=== PATIENT | female | born 1940 | race African-American/Black ===

== ENCOUNTER 2018-12-30 13:29 | Emergency (ER) | payer BC ==
[~2018-12-30] VITALS: Ht 167.6 cm; Wt 72.0 kg
[~2018-12-30 13:29] MED LIST: SOTA80TA PO; XAR15 PO
[2018-12-30] MEDS ORDERED: APIX5TAB PO (13:46)
[2018-12-30] MEDS ORDERED: DILT30TA38 PO (13:46)
[2018-12-30] MEDS ORDERED: SIMV20TA6 PO (13:46)
[2018-12-30 18:34] VITALS: BP 146/62
== END 2018-12-30 18:35 | disposition home or self-care (01) ==
LOC: ER 13:29
DX: S60.221A Contusion of right hand, initial encounter (principal); W01.0XXA Fall on same level from slipping, tripping and stumbling without subsequent striking against object, initial encounter; Y93.89 Activity, other specified; Y92.89 Other specified places as the place of occurrence of the external cause; J06.9 Acute upper respiratory infection, unspecified; I10 Essential (primary) hypertension
CPT/HCPCS: 29125; 71045; 73130; 99283

== ENCOUNTER 2019-12-07 17:26 | Inpatient (IN) | payer BC ==
[~2019-12-07] VITALS: Ht 167.6 cm; Wt 76.3 kg
[~2019-12-07 17:26] MED LIST changes: +APIX5TAB PO; +ATOR20TA65 PO; +DILT300C25 PO; -SOTA80TA PO; -XAR15 PO
[2019-12-07] MEDS ORDERED: DILTIAZEM HCL 5MG/ML 5ML VIAL IV ONE (21:30)
[2019-12-07 22:00] VITALS: BP 118/62
[2019-12-07 22:10] LABS: BASOPHILS % 0.6 % (0.0-2.0); EOSINOPHILS % 0.1 % (0.0-5.0); HEMATOCRIT. 46.9 % (36.0-48.0); HEMOGLOBIN. 14.7 g/dL (12.0-16.0); LYMPHOCYTES % 34.4 % (20.0-50.0); MEAN CORPUSCULAR HEMOGLOBIN 26.6 pg (28.0-32.0); MEAN CORPUSCULAR VOLUME 84.7 fL (81.0-99.0); MEAN PLATELET VOLUME 8.1 fl (7.4-10.4); NEUTROPHILS % 52.9 % (40.0-76.0); PLATELET 229 x1000/uL (130-400); RED BLOOD CELL COUNT 5.53 mill/uL (4.2-5.4); RED CELL DISTRIBUTION WIDTH 17.1 % (11.6-14.6)
[2019-12-07 22:14] LABS: CHLORIDE 99 mEq/L (98-107)
[2019-12-07] MEDS: METOPROLOL TARTRATE 5MG/5ML VIAL IV SCH ×2 (22:20→23:55)
[2019-12-07] MEDS ORDERED: DIGOXIN 500MCG/2ML AMP IV ONE (23:30)
[2019-12-08] MEDS ORDERED: FUROSEMIDE 20MG/2ML VIAL IVP ONE
[2019-12-08] MEDS ORDERED: AMIODARONE HCL 900 MG in DEXT 5% WATER 482 ML IV PRN ×2 (01:45→02:15)
[2019-12-08 07:41] LABS: CLARITY URINE CLEAR (CLEAR); COLOR URINE DARK YELLOW (YELLOW); KETONES URINE NEGATIVE (NEGATIVE); LEUKOCYTE ESTERASE URINE TRACE (NEGATIVE); NITRITE URINE NEGATIVE (NEGATIVE); OCCULT BLOOD URINE NEGATIVE (NEGATIVE); PROTEIN URINE 1+ (NEGATIVE); SPECIFIC GRAVITY URINE 1.009 (1.005-1.030)
[2019-12-08] MEDS ORDERED: DIPHENHYDRAMINE 25MG CAPSULE PO NR (09:32)
[2019-12-08] MEDS ORDERED: FURO-152 PO (09:48)
[2019-12-08] MEDS ORDERED: RIVA20TA PO (09:48)
[2019-12-08] MEDS ORDERED: METO-539 PO (09:48)
[2019-12-08] MEDS: METOPROLOL TARTRATE 50MG TABLET PO SCH ×2 (09:50→22:22)
[2019-12-08] MEDS ORDERED: ENOXAPARIN 40MG/0.4ML SYR SUBCUT SCH (16:15)
[2019-12-08] MEDS ORDERED: IPRATROPIUM/ALBUTEROL 0.5-3(2.5)MG/3ML NEB HHN PRN (16:15)
[2019-12-08] MEDS ORDERED: ACETAMINOPHEN 325MG TABLET PO PRN (16:15)
[2019-12-08] MEDS ORDERED: HYDROCODONE/ACETAMINOPHEN 5/325MG TABLET PO PRN (16:15)
[2019-12-08] MEDS ORDERED: LEVOFLOXACIN 500MG PREMIX 100 ML IV NR (17:30)
[2019-12-08] MEDS ORDERED: RIVAROXABAN 20 MG TABLET PO NR (18:00)
[2019-12-08 22:00] VITALS: BP 118/62
[2019-12-08] MEDS: ATORVASTATIN CALCIUM 20MG TABLET PO SCH (22:22)
[2019-12-09] VITALS (11 sets, daily range): BP systolic 86–103; BP diastolic 46–59
[2019-12-09 06:37] LABS: BASOPHILS % 0.3 % (0.0-2.0); EOSINOPHILS % 0.7 % (0.0-5.0); HEMATOCRIT. 36.8 % (36.0-48.0); LYMPHOCYTES % 30.6 % (20.0-50.0); MEAN CORPUSCULAR HEMOGLOBIN 26.9 pg (28.0-32.0); MEAN CORPUSCULAR VOLUME 82.4 fL (81.0-99.0); MONOCYTES % 12.9 % (2.0-8.0); NEUTROPHILS % 55.5 % (40.0-76.0); PLATELET 203 x1000/uL (130-400); RED BLOOD CELL COUNT 4.47 mill/uL (4.2-5.4); RED CELL DISTRIBUTION WIDTH 16.5 % (11.6-14.6)
[2019-12-09 07:52] LABS: CHLORIDE 101 mEq/L (98-107)
[2019-12-09 08:00] LABS: LDL CHOLESTEROL 87 mg/dL (5-100)
[2019-12-09 08:01] LABS: CREATINE KINASE 132 IU/L (26-192); HDL CHOLESTEROL 14 mg/dL (40-59)
[2019-12-09 08:02] LABS: T4 FREE 1.67 ng/dL (0.76-1.46)
[2019-12-09] MEDS: METOPROLOL TARTRATE 50MG TABLET PO SCH ×2 (08:55→20:42)
[2019-12-09] MEDS ORDERED: DIPHENHYDRAMINE 25MG CAPSULE PO NR (11:00)
[2019-12-09] MEDS ORDERED: POTASSIUM CHLORIDE 20MEQ/PACKET PO NR (11:00)
[2019-12-09] MEDS: LEVOFLOXACIN 250MG PREMIX 50 ML IV SCH (11:23)
[2019-12-09] MEDS ORDERED: RIVAROXABAN 10 MG TABLET PO SCH (17:00)
[2019-12-09] MEDS: RIVAROXABAN 15 MG TABLET PO SCH (17:09)
[2019-12-09] MEDS: DIGOXIN 125MCG TABLET PO SCH (17:09)
[2019-12-09] MEDS ORDERED: LEVOFLOXACIN 500MG PREMIX 100 ML IV SCH (17:30)
[2019-12-09 18:18] LABS: BG CARBOXYHEMOGLOBIN 0.8 % (0.5-1.5); BG DEOXYHEMOGLOBIN 2.8 % (0.0-5.0); BG FRACTION INSPIRED OXYGEN 21; BG HCO3 ACT 27.4 mmol/L (22.0-26.0); BG METHEMOGLOBIN 0.3 % (0.0-1.5); BG OXYGEN SATURATION 97.2 % (92.0-98.5); BG OXYHEMOGLOBIN 96.1 % (94.0-97.0); BG PCO2 36.8 mmHg (35.0-45.0); BG PH 7.489 (7.350-7.450); BG PO2 94.3 mmHg (75.0-100.0); BG SAMPLE SITE LEFT BRACHIAL; BG TOTAL HEMOGLOBIN 14.1 g/dL (12.0-18.0); BG VENT MODE ROOM AIR
[2019-12-09 19:52] LABS: INR 2.5; PROTHROMBIN TIME 24.8 sec (9.6-11.0)
[2019-12-09] MEDS: DIPHENHYDRAMINE 25MG CAPSULE PO PRN (20:33)
[2019-12-09] MEDS: ATORVASTATIN CALCIUM 20MG TABLET PO SCH (20:33)
[2019-12-10] VITALS: BP 98/46
[2019-12-10] MEDS: IPRATROPIUM/ALBUTEROL 0.5-3(2.5)MG/3ML NEB HHN SCH ×5 (01:10→20:13)
[2019-12-10 04:00] VITALS: BP 107/66
[2019-12-10] MEDS: DIPHENHYDRAMINE 25MG CAPSULE PO PRN (07:24)
[2019-12-10 07:29] LABS: BASOPHILS % 0.1 % (0.0-2.0); EOSINOPHILS % 0.4 % (0.0-5.0); HEMOGLOBIN. 12.9 g/dL (12.0-16.0); LYMPHOCYTES % 34.3 % (20.0-50.0); MEAN CORPUSCULAR HEMOGLOBIN 26.3 pg (28.0-32.0); MEAN CORPUSCULAR VOLUME 83.5 fL (81.0-99.0); MEAN PLATELET VOLUME 8.1 fl (7.4-10.4); MONOCYTES % 8.9 % (2.0-8.0); NEUTROPHILS % 56.3 % (40.0-76.0); PLATELET 199 x1000/uL (130-400); RED BLOOD CELL COUNT 4.91 mill/uL (4.2-5.4); RED CELL DISTRIBUTION WIDTH 16.6 % (11.6-14.6)
[2019-12-10] MEDS: BUDESONIDE 0.5MG/2ML NEB HHN SCH ×2 (07:49→20:12)
[2019-12-10 08:00] VITALS: BP 118/68
[2019-12-10] MEDS: METOPROLOL TARTRATE 50MG TABLET PO SCH ×2 (08:47→21:00)
[2019-12-10] MEDS: LEVOFLOXACIN 250MG PREMIX 50 ML IV SCH (10:53)
[2019-12-10 12:00] VITALS: BP 85/51
[2019-12-10] MEDS ORDERED: POTASSIUM CHLORIDE 20MEQ/PACKET PO SCH (12:00)
[2019-12-10] MEDS: DILTIAZEM HCL 30MG TABLET PO SCH ×2 (14:00→22:07)
[2019-12-10 16:00] VITALS: BP 88/46
[2019-12-10] MEDS: RIVAROXABAN 15 MG TABLET PO SCH (17:08)
[2019-12-10] MEDS: DIGOXIN 125MCG TABLET PO SCH (17:08)
[2019-12-10 20:00] VITALS: BP 107/70
[2019-12-10] MEDS: ATORVASTATIN CALCIUM 20MG TABLET PO SCH (21:58)
[2019-12-11] VITALS: BP 78/53
[2019-12-11] MEDS: IPRATROPIUM/ALBUTEROL 0.5-3(2.5)MG/3ML NEB HHN SCH ×4 (01:56→21:37)
[2019-12-11 04:00] VITALS: BP 104/62
[2019-12-11 05:45] LABS: INR 1.6
[2019-12-11] MEDS: DILTIAZEM HCL 30MG TABLET PO SCH ×3 (06:00→21:25)
[2019-12-11] MEDS: BUDESONIDE 0.5MG/2ML NEB HHN SCH (07:56)
[2019-12-11 08:05] VITALS: BP 87/52
[2019-12-11] MEDS: METOPROLOL TARTRATE 50MG TABLET PO SCH (09:00)
[2019-12-11] MEDS: LEVOFLOXACIN 250MG PREMIX 50 ML IV SCH (10:35)
[2019-12-11 12:00] VITALS: BP 88/48
[2019-12-11] MEDS: MIDODRINE HCL 2.5MG TABLET PO SCH ×2 (13:28→17:20)
[2019-12-11 16:00] VITALS: BP 109/58
[2019-12-11] MEDS ORDERED: MAGNESIUM 1 G PREMIX 100 ML IV NR (16:00)
[2019-12-11] MEDS: RIVAROXABAN 15 MG TABLET PO SCH (17:20)
[2019-12-11] MEDS: DIGOXIN 125MCG TABLET PO SCH (17:20)
[2019-12-11 20:00] VITALS: BP 101/54
[2019-12-11] MEDS: METOPROLOL TARTRATE 25MG TABLET PO SCH (21:25)
[2019-12-11] MEDS: ATORVASTATIN CALCIUM 20MG TABLET PO SCH (21:25)
[2019-12-12] VITALS (7 sets, daily range): BP systolic 94–108; BP diastolic 37–58
[2019-12-12] MEDS: IPRATROPIUM/ALBUTEROL 0.5-3(2.5)MG/3ML NEB HHN SCH ×4 (03:16→21:19)
[2019-12-12] MEDS: DIPHENHYDRAMINE 25MG CAPSULE PO PRN (05:55)
[2019-12-12] MEDS: DILTIAZEM HCL 30MG TABLET PO SCH ×3 (05:57→22:00)
[2019-12-12 06:21] LABS: HEMOGLOBIN. 12.1 g/dL (12.0-16.0); MEAN CORPUSCULAR HEMOGLOBIN 26.9 pg (28.0-32.0); MEAN CORPUSCULAR VOLUME 82.2 fL (81.0-99.0); MEAN PLATELET VOLUME 7.9 fl (7.4-10.4); PLATELET 184 x1000/uL (130-400); RED CELL DISTRIBUTION WIDTH 16.8 % (11.6-14.6)
[2019-12-12] MEDS: BUDESONIDE 0.5MG/2ML NEB HHN SCH ×3 (08:00→21:21)
[2019-12-12 08:21] LABS: CHLORIDE 103 mEq/L (98-107)
[2019-12-12] MEDS: MIDODRINE HCL 2.5MG TABLET PO SCH ×3 (09:31→17:48)
[2019-12-12] MEDS: METOPROLOL TARTRATE 25MG TABLET PO SCH (09:31)
[2019-12-12] MEDS ORDERED: POTASSIUM CHLORIDE 20MEQ/PACKET PO NR (11:15)
[2019-12-12] MEDS: LEVOFLOXACIN 250MG PREMIX 50 ML IV SCH (11:37)
[2019-12-12 16:44] LABS: PLATELET ESTIMATE NORMAL
[2019-12-12] MEDS: DIGOXIN 125MCG TABLET PO SCH (17:44)
[2019-12-12] MEDS: RIVAROXABAN 15 MG TABLET PO SCH (17:44)
[2019-12-12] MEDS: ONDANSETRON HCL 4MG/2ML INJ IV PRN (20:31)
[2019-12-12] MEDS: ATORVASTATIN CALCIUM 20MG TABLET PO SCH (21:00)
[2019-12-13] VITALS (8 sets, daily range): BP systolic 91–127; BP diastolic 52–78
[2019-12-13] MEDS: IPRATROPIUM/ALBUTEROL 0.5-3(2.5)MG/3ML NEB HHN SCH ×4 (01:40→21:34)
[2019-12-13] MEDS: DILTIAZEM HCL 30MG TABLET PO SCH (05:36)
[2019-12-13 06:59] LABS: BASOPHILS % 0.5 % (0.0-2.0); HEMATOCRIT. 37.8 % (36.0-48.0); HEMOGLOBIN. 12.1 g/dL (12.0-16.0); LYMPHOCYTES % 19.7 % (20.0-50.0); MEAN CORPUSCULAR HEMOGLOBIN 26.6 pg (28.0-32.0); MEAN CORPUSCULAR VOLUME 82.7 fL (81.0-99.0); MEAN PLATELET VOLUME 8.1 fl (7.4-10.4); MONOCYTES % 11.6 % (2.0-8.0); NEUTROPHILS % 67.2 % (40.0-76.0); PLATELET 170 x1000/uL (130-400); RED BLOOD CELL COUNT 4.56 mill/uL (4.2-5.4); RED CELL DISTRIBUTION WIDTH 17.2 % (11.6-14.6)
[2019-12-13 07:08] LABS: CHLORIDE 104 mEq/L (98-107)
[2019-12-13] MEDS: MIDODRINE HCL 2.5MG TABLET PO SCH (09:15)
[2019-12-13] MEDS: LEVOFLOXACIN 250MG PREMIX 50 ML IV SCH (11:24)
[2019-12-13] MEDS ORDERED: DIGOXIN 500MCG/2ML AMP IV NR (17:00)
[2019-12-13] MEDS: RIVAROXABAN 15 MG TABLET PO SCH (17:10)
[2019-12-13] MEDS: MIDODRINE HCL 5MG TABLET PO SCH (17:10)
[2019-12-13] MEDS: DILTIAZEM HCL 60MG TABLET PO SCH ×2 (17:36→23:16)
[2019-12-13] MEDS: DIGOXIN 125MCG TABLET PO SCH (18:16)
[2019-12-13] MEDS ORDERED: MORPHINE SULFATE 2 MG/ML CPJ (NOT FOR IM USE) IV PRN (19:00)
[2019-12-13] MEDS: ATORVASTATIN CALCIUM 20MG TABLET PO SCH (21:19)
[2019-12-14] VITALS (7 sets, daily range): BP systolic 92–130; BP diastolic 51–83
[2019-12-14] MEDS: IPRATROPIUM/ALBUTEROL 0.5-3(2.5)MG/3ML NEB HHN SCH ×3 (02:00→13:11)
[2019-12-14] MEDS: DILTIAZEM HCL 60MG TABLET PO SCH ×4 (05:30→23:35)
[2019-12-14 07:05] LABS: CHLORIDE 103 mEq/L (98-107)
[2019-12-14 07:15] LABS: HEMATOCRIT. 36.3 % (36.0-48.0); HEMOGLOBIN. 11.6 g/dL (12.0-16.0); MEAN CORPUSCULAR HEMOGLOBIN 26.5 pg (28.0-32.0); MEAN CORPUSCULAR VOLUME 82.5 fL (81.0-99.0); MEAN PLATELET VOLUME 8.1 fl (7.4-10.4); PLATELET 141 x1000/uL (130-400); RED CELL DISTRIBUTION WIDTH 16.8 % (11.6-14.6)
[2019-12-14 07:31] LABS: DIGOXIN 1.7 ng/mL (0.9-2.0)
[2019-12-14] MEDS: MIDODRINE HCL 5MG TABLET PO SCH ×3 (09:12→17:50)
[2019-12-14] MEDS: LEVOFLOXACIN 250MG PREMIX 50 ML IV SCH (11:16)
[2019-12-14] MEDS ORDERED: MAGNESIUM 2 G PREMIX 50 ML IV SCH (14:00)
[2019-12-14] MEDS: METHYLPREDNISOLONE SOD SUCC 40 MG/ML VIAL IV SCH (15:26)
[2019-12-14] MEDS: MAGNESIUM OXIDE 400MG TABLET PO SCH ×2 (15:27→17:50)
[2019-12-14 16:40] LABS: PLATELET ESTIMATE NORMAL
[2019-12-14] MEDS: RIVAROXABAN 15 MG TABLET PO SCH (17:50)
[2019-12-14] MEDS: PIPERACILLIN/TAZOBACTAM 3.375 G in DEXT 5% WATER 100 ML IV SCH ×2 (17:50→23:34)
[2019-12-14] MEDS: DIGOXIN 125MCG TABLET PO SCH (17:51)
[2019-12-14] MEDS: ATORVASTATIN CALCIUM 20MG TABLET PO SCH (20:02)
[2019-12-14] MEDS: IPRATROPIUM BROMIDE (0.02%) 0.5MG/2.5ML NEB HHN SCH (21:40)
[2019-12-15] VITALS (12 sets, daily range): BP systolic 88–125; BP diastolic 45–77
[2019-12-15] MEDS: IPRATROPIUM BROMIDE (0.02%) 0.5MG/2.5ML NEB HHN SCH ×4 (04:54→20:05)
[2019-12-15] MEDS: PIPERACILLIN/TAZOBACTAM 3.375 G in DEXT 5% WATER 100 ML IV SCH ×3 (05:05→17:00)
[2019-12-15] MEDS: DILTIAZEM HCL 60MG TABLET PO SCH ×3 (05:06→18:19)
[2019-12-15 06:37] LABS: BASOPHILS % 0.3 % (0.0-2.0); HEMOGLOBIN. 11.7 g/dL (12.0-16.0); LYMPHOCYTES % 18.1 % (20.0-50.0); MEAN CORPUSCULAR HEMOGLOBIN 26.7 pg (28.0-32.0); MEAN PLATELET VOLUME 8.5 fl (7.4-10.4); NEUTROPHILS % 78.6 % (40.0-76.0); PLATELET 130 x1000/uL (130-400); RED BLOOD CELL COUNT 4.39 mill/uL (4.2-5.4)
[2019-12-15 07:08] LABS: CHLORIDE 100 mEq/L (98-107)
[2019-12-15] MEDS: METHYLPREDNISOLONE SOD SUCC 40 MG/ML VIAL IV SCH (08:17)
[2019-12-15] MEDS: MAGNESIUM OXIDE 400MG TABLET PO SCH ×2 (08:17→16:49)
[2019-12-15] MEDS: MIDODRINE HCL 5MG TABLET PO SCH ×3 (08:17→18:20)
[2019-12-15] MEDS ORDERED: ATOR20TA MT (13:55)
[2019-12-15] MEDS ORDERED: XAR15 MT (13:55)
[2019-12-15] MEDS ORDERED: P20 MT (13:55)
[2019-12-15] MEDS ORDERED: ALBU90AE INH (13:55)
[2019-12-15] MEDS ORDERED: DIGO125T80 MT (13:55)
[2019-12-15] MEDS ORDERED: DILT240C91 MT (13:55)
[2019-12-15] MEDS ORDERED: MIDO5TAB4 MT (13:55)
[2019-12-15] MEDS ORDERED: [UNRECOGNIZED DRUG - CODE] MC (13:55)
[2019-12-15] MEDS: RIVAROXABAN 15 MG TABLET PO SCH (16:49)
[2019-12-15] MEDS: DIGOXIN 125MCG TABLET PO SCH (17:00)
[2019-12-15] MEDS: ATORVASTATIN CALCIUM 20MG TABLET PO SCH (22:07)
[2019-12-16] VITALS (13 sets, daily range): BP systolic 105–130; BP diastolic 48–71
[2019-12-16] MEDS ORDERED: DEXT 5%/0.9% NACL 1,000 ML IV SCH
[2019-12-16] MEDS: PIPERACILLIN/TAZOBACTAM 3.375 G in DEXT 5% WATER 100 ML IV SCH ×4 (00:23→18:24)
[2019-12-16] MEDS: DILTIAZEM HCL 60MG TABLET PO SCH ×4 (00:24→17:05)
[2019-12-16] MEDS: IPRATROPIUM BROMIDE (0.02%) 0.5MG/2.5ML NEB HHN SCH ×4 (02:00→21:23)
[2019-12-16 07:05] LABS: HEMATOCRIT 45.2 % (36.0-48.0); HEMOGLOBIN 14.7 g/dL (12.0-16.0); MEAN CORPUSCULAR HEMOGLOBIN 27.1 pg (28.0-32.0); MEAN CORPUSCULAR VOLUME 83.3 fL (81.0-99.0); PLATELET 157 x1000/uL (130-400); RED BLOOD CELL COUNT 5.42 mill/uL (4.2-5.4); RED CELL DISTRIBUTION WIDTH 17.5 % (11.6-14.6)
[2019-12-16 07:45] LABS: CHLORIDE 98 mEq/L (98-107)
[2019-12-16 08:09] LABS: DIGOXIN 1.3 ng/mL (0.9-2.0)
[2019-12-16] MEDS: METHYLPREDNISOLONE SOD SUCC 40 MG/ML VIAL IV SCH (08:16)
[2019-12-16] MEDS: MIDODRINE HCL 5MG TABLET PO SCH ×3 (08:17→16:25)
[2019-12-16] MEDS: MAGNESIUM OXIDE 400MG TABLET PO SCH ×2 (08:17→16:24)
[2019-12-16] MEDS ORDERED: SODIUM CHLORIDE 0.45% 1,000 ML IV SCH (09:30)
[2019-12-16] MEDS: ONDANSETRON HCL 4MG/2ML INJ IV PRN (12:30)
[2019-12-16] MEDS ORDERED: TETRACAINE/BENZOCAINE/BUTAMBEN 20 GM SPRAY MM ONE (14:21)
[2019-12-16] MEDS ORDERED: LIDOCAINE HCL 2% JELLY 5ML ONE (14:21)
[2019-12-16] MEDS ORDERED: MIDAZOLAM HCL 2 MG/2 ML VIAL ONE (14:52)
[2019-12-16] MEDS ORDERED: FENTANYL CITRATE/PF 50MCG/ML 2ML VIAL ONE (14:52)
[2019-12-16] MEDS: DIGOXIN 125MCG TABLET PO SCH (17:05)
[2019-12-16] MEDS: ATORVASTATIN CALCIUM 20MG TABLET PO SCH (20:33)
[2019-12-17] VITALS (11 sets, daily range): BP systolic 96–131; BP diastolic 38–69
[2019-12-17] MEDS: IPRATROPIUM BROMIDE (0.02%) 0.5MG/2.5ML NEB HHN SCH ×4 (03:06→21:09)
[2019-12-17] MEDS: DILTIAZEM HCL 60MG TABLET PO SCH ×4 (06:18→18:22)
[2019-12-17] MEDS: PIPERACILLIN/TAZOBACTAM 3.375 G in DEXT 5% WATER 100 ML IV SCH ×5 (06:18→18:22)
[2019-12-17 08:11] LABS: BASOPHILS % 0.2 % (0.0-2.0); LYMPHOCYTES % 13.4 % (20.0-50.0); MEAN CORPUSCULAR HEMOGLOBIN 26.7 pg (28.0-32.0); MEAN CORPUSCULAR VOLUME 82.2 fL (81.0-99.0); MEAN PLATELET VOLUME 8.4 fl (7.4-10.4); MONOCYTES % 4.6 % (2.0-8.0); NEUTROPHILS % 81.8 % (40.0-76.0); PLATELET 169 x1000/uL (130-400); RED BLOOD CELL COUNT 5.29 mill/uL (4.2-5.4); RED CELL DISTRIBUTION WIDTH 17.1 % (11.6-14.6)
[2019-12-17 08:18] LABS: HEMATOCRIT. 43.5 % (36.0-48.0); HEMOGLOBIN. 14.1 g/dL (12.0-16.0)
[2019-12-17] MEDS: MAGNESIUM OXIDE 400MG TABLET PO SCH ×2 (08:46→16:55)
[2019-12-17] MEDS: MIDODRINE HCL 5MG TABLET PO SCH ×3 (08:47→16:58)
[2019-12-17] MEDS: METHYLPREDNISOLONE SOD SUCC 40 MG/ML VIAL IV SCH (08:47)
[2019-12-17 09:12] LABS: CHLORIDE 100 mEq/L (98-107)
[2019-12-17] MEDS: RIVAROXABAN 15 MG TABLET PO SCH (16:56)
[2019-12-17] MEDS: DIGOXIN 125MCG TABLET PO SCH (18:22)
[2019-12-17] MEDS ORDERED: POTASSIUM CHLORIDE 20MEQ TABLET SR PO NR (20:38)
[2019-12-17] MEDS: ATORVASTATIN CALCIUM 20MG TABLET PO SCH (20:57)
[2019-12-18] VITALS (9 sets, daily range): BP systolic 109–131; BP diastolic 47–68
[2019-12-18] MEDS: DILTIAZEM HCL 60MG TABLET PO SCH ×5 (01:53→17:49)
[2019-12-18] MEDS: PIPERACILLIN/TAZOBACTAM 3.375 G in DEXT 5% WATER 100 ML IV SCH ×3 (01:54→12:55)
[2019-12-18] MEDS: IPRATROPIUM BROMIDE (0.02%) 0.5MG/2.5ML NEB HHN SCH ×3 (02:33→14:00)
[2019-12-18] MEDS: METHYLPREDNISOLONE SOD SUCC 40 MG/ML VIAL IV SCH (08:51)
[2019-12-18] MEDS: MAGNESIUM OXIDE 400MG TABLET PO SCH ×2 (08:51→17:51)
[2019-12-18] MEDS: MIDODRINE HCL 5MG TABLET PO SCH ×3 (09:41→17:49)
[2019-12-18] MEDS: DIGOXIN 125MCG TABLET PO SCH (17:49)
[2019-12-18] MEDS: RIVAROXABAN 15 MG TABLET PO SCH (17:51)
== END 2019-12-18 18:43 | disposition home or self-care (01) | DRG 291 ==
LOC: ER 17:26 → 5EST 12-08 01:46 → EDBEDREQTM 12-08 01:47 → EDBEDREQSVC 12-08 01:47 → EDBEDREQ 12-08 01:47 → EDBEDREQTM 12-08 14:48 → EDBEDREQSVC 12-08 14:48 → ENRESERV 12-08 20:15 → 5EST 12-08 22:56
PROVIDERS: ADMIT Internal Medicine; ATTEND Internal Medicine
DX: I13.0 Hypertensive heart and chronic kidney disease with heart failure and stage 1 through stage 4 chronic kidney disease, or unspecified chronic kidney disease (principal); I50.33 Acute on chronic diastolic (congestive) heart failure; J96.90 Respiratory failure, unspecified, unspecified whether with hypoxia or hypercapnia; I48.19 Other persistent atrial fibrillation; J44.1 Chronic obstructive pulmonary disease with (acute) exacerbation; Q21.1 Atrial septal defect; R00.2 Palpitations; N18.9 Chronic kidney disease, unspecified; E78.5 Hyperlipidemia, unspecified; I95.9 Hypotension, unspecified; E87.6 Hypokalemia; I27.81 Cor pulmonale (chronic); I08.1 Rheumatic disorders of both mitral and tricuspid valves; I27.29 Other secondary pulmonary hypertension; E78.00 Pure hypercholesterolemia, unspecified; E83.42 Hypomagnesemia; Z79.899 Other long term (current) drug therapy; Z82.49 Family history of ischemic heart disease and other diseases of the circulatory system; Z79.01 Long term (current) use of anticoagulants; Z87.891 Personal history of nicotine dependence
CPT/HCPCS: 36415; 36600; 71045; 73630; 80048; 80053; 80061; 80162; 81003; 82375; 82550; 82805; 83735; 83880; 84439; 84443; 84484; 85025; 85027; 87804; 93005; 93306; 93312; 93970; 94640; 96365; 96367; 96375; 97162; 97530; 99284; J0282; J1160; J1940; J1956; J2250; J2405; J2543; J2920; J3010; J3475; J3490; J7060; J7626; Q0163

== ENCOUNTER 2019-12-20 11:23 | Inpatient (IN) | payer BC, MEDICARE ==
[~2019-12-20] VITALS: Ht 170.2 cm; Wt 69.9 kg
[~2019-12-20 11:23] MED LIST changes: +ALBU90AE INH; -APIX5TAB PO; +ATOR20TA MT; +DIGO125T80 MT; +DILT240C91 MT; -DILT300C25 PO; +MIDO5TAB4 MT; +P20 MT; +RIVA20TA PO; +XAR15 MT; +[UNRECOGNIZED DRUG - CODE] MC
[2019-12-20] MEDS ORDERED: SODIUM CHLORIDE 0.9% 250 ML IV ONE (12:03)
[2019-12-20 12:39] LABS: CHLORIDE 99 mEq/L (98-107)
[2019-12-20 12:41] LABS: INR 1.3; PROTHROMBIN TIME 14.4 sec (9.6-11.0)
[2019-12-20 12:50] LABS: BASOPHILS % 0.2 % (0.0-2.0); EOSINOPHILS % 0.1 % (0.0-5.0); HEMATOCRIT. 41.1 % (36.0-48.0); HEMOGLOBIN. 13.4 g/dL (12.0-16.0); LYMPHOCYTES % 19.6 % (20.0-50.0); MEAN CORPUSCULAR HEMOGLOBIN 26.4 pg (28.0-32.0); MEAN CORPUSCULAR VOLUME 80.9 fL (81.0-99.0); MONOCYTES % 7.7 % (2.0-8.0); NEUTROPHILS % 72.4 % (40.0-76.0); PLATELET 220 x1000/uL (130-400); RED BLOOD CELL COUNT 5.08 mill/uL (4.2-5.4)
[2019-12-20] MEDS ORDERED: MAGNESIUM CITRATE 300ML SOLUTION PO ONE (14:15)
[2019-12-20 14:30] LABS: CLARITY URINE CLEAR (CLEAR); COLOR URINE DK YELLOW (YELLOW); KETONES URINE NEGATIVE (NEGATIVE); LEUKOCYTE ESTERASE URINE NEGATIVE (NEGATIVE); NITRITE URINE NEGATIVE (NEGATIVE); OCCULT BLOOD URINE NEGATIVE (NEGATIVE); PH URINE 7.5 (4.5-8.0); PROTEIN URINE TRACE (NEGATIVE); SPECIFIC GRAVITY URINE 1.024 (1.005-1.030)
[2019-12-20] MEDS ORDERED: MORPHINE SULFATE 2 MG/ML CPJ (NOT FOR IM USE) IV ONE (17:15)
[2019-12-20] MEDS ORDERED: DILTIAZEM HCL 60MG TABLET PO ONE (18:00)
[2019-12-21] MEDS ORDERED: MORPHINE SULFATE 2 MG/ML CPJ (NOT FOR IM USE) IV PRN (01:45)
[2019-12-21] MEDS: METOPROLOL TARTRATE 5MG/5ML VIAL IV SCH ×3 (05:44→06:07)
[2019-12-21] MEDS ORDERED: DIGOXIN 500MCG/2ML AMP IV ONE (06:25)
[2019-12-21] MEDS ORDERED: PANTOPRAZOLE 80MG in SODIUM CHLORIDE 0.9% 100ML IV SCH (06:30)
[2019-12-21] MEDS: DEXT 5%/0.45% NACL 1000ML 1,000 ML IV SCH ×2 (07:12→16:49)
[2019-12-21] MEDS ORDERED: DILTIAZEM HCL 180MG CAPSULE CD 24HR PO ONE (07:30)
[2019-12-21] MEDS ORDERED: ONDANSETRON HCL 4MG/2ML INJ IV PRN (07:30)
[2019-12-21 09:09] LABS: BASOPHILS % 0.3 % (0.0-2.0); EOSINOPHILS % 0.3 % (0.0-5.0); HEMATOCRIT. 42.4 % (36.0-48.0); HEMOGLOBIN. 13.7 g/dL (12.0-16.0); LYMPHOCYTES % 28.3 % (20.0-50.0); MEAN CORPUSCULAR HEMOGLOBIN 26.4 pg (28.0-32.0); MONOCYTES % 7.7 % (2.0-8.0); NEUTROPHILS % 63.4 % (40.0-76.0); PLATELET 203 x1000/uL (130-400); RED BLOOD CELL COUNT 5.17 mill/uL (4.2-5.4); RED CELL DISTRIBUTION WIDTH 17.4 % (11.6-14.6)
[2019-12-21 09:16] LABS: CHLORIDE 102 mEq/L (98-107)
[2019-12-21 10:00] VITALS: BP 139/69
[2019-12-21] MEDS ORDERED: DILTIAZEM HCL 180MG CAPSULE CD 24HR PO NR (10:30)
[2019-12-21] MEDS: METRONIDAZOLE 500MG TABLET PO SCH ×2 (10:41→17:28)
[2019-12-21 11:19] VITALS: BP 139/69
[2019-12-21 12:00] VITALS: BP 110/67
[2019-12-21] MEDS ORDERED: POTASSIUM CHLORIDE INJ 40 MEQ in DEXT 5% WATER 250 ML IV NR (13:00)
[2019-12-21] MEDS ORDERED: HYDRALAZINE 20MG/ML VIAL IV PRN (15:00)
[2019-12-21] MEDS ORDERED: ACETAMINOPHEN 325MG TABLET PO PRN (15:00)
[2019-12-21] MEDS ORDERED: IPRATROPIUM/ALBUTEROL 0.5-3(2.5)MG/3ML NEB HHN PRN (15:00)
[2019-12-21] MEDS ORDERED: GUAIFENESIN 200MG/10ML SUGAR FREE UDC PO PRN (15:00)
[2019-12-21 15:50] LABS: CREATINE KINASE MB FRACTION 1.9 ng/mL (0.5-3.6)
[2019-12-21 16:00] VITALS: BP 118/73
[2019-12-21] MEDS: METHYLPREDNISOLONE SOD SUCC 40 MG/ML VIAL IV SCH (16:49)
[2019-12-21 17:28] LABS: BG BASE EXCESS 3.6 mmol/L (-2.0-2.0); BG CARBOXYHEMOGLOBIN 0.9 % (0.5-1.5); BG DEOXYHEMOGLOBIN 7.3 % (0.0-5.0); BG FRACTION INSPIRED OXYGEN 21; BG HCO3 ACT 26.6 mmol/L (22.0-26.0); BG METHEMOGLOBIN 0.3 % (0.0-1.5); BG OXYGEN SATURATION 92.6 % (92.0-98.5); BG OXYHEMOGLOBIN 91.5 % (94.0-97.0); BG PCO2 35.2 mmHg (35.0-45.0); BG PH 7.497 (7.350-7.450); BG PO2 61.9 mmHg (75.0-100.0); BG SAMPLE SITE RIGHT RADIAL; BG TOTAL HEMOGLOBIN 13.5 g/dL (12.0-18.0); BG VENT MODE ROOM AIR
[2019-12-21] MEDS: LEVOFLOXACIN 500MG PREMIX 100 ML IV SCH (17:28)
[2019-12-21] MEDS ORDERED: SIMETHICONE 80MG TABLET CHEW PO PRN (18:30)
[2019-12-21 20:00] VITALS: BP 138/54
[2019-12-21] MEDS: IPRATROPIUM/ALBUTEROL 0.5-3(2.5)MG/3ML NEB HHN SCH (21:32)
[2019-12-21] MEDS: PANTOPRAZOLE SODIUM 40 MG/VIAL IV SCH (22:28)
[2019-12-21] MEDS: GUAIFENESIN 600MG ER TABLET PO SCH (22:28)
[2019-12-21] MEDS ORDERED: LOPERAMIDE HCL 2MG CAPSULE PO PRN (23:15)
[2019-12-22] VITALS: BP 124/78
[2019-12-22 00:08] LABS: CREATINE KINASE MB FRACTION 1.8 ng/mL (0.5-3.6)
[2019-12-22] MEDS: METRONIDAZOLE 500MG TABLET PO SCH ×4 (00:43→21:14)
[2019-12-22] MEDS: METHYLPREDNISOLONE SOD SUCC 40 MG/ML VIAL IV SCH (02:02)
[2019-12-22] MEDS: DEXT 5%/0.45% NACL 1000ML 1,000 ML IV SCH (02:02)
[2019-12-22] MEDS: IPRATROPIUM/ALBUTEROL 0.5-3(2.5)MG/3ML NEB HHN SCH ×4 (02:52→21:32)
[2019-12-22 04:00] VITALS: BP 119/62
[2019-12-22 07:30] LABS: BASOPHILS % 0.3 % (0.0-2.0); HEMATOCRIT. 39.7 % (36.0-48.0); HEMOGLOBIN. 12.9 g/dL (12.0-16.0); LYMPHOCYTES % 8.2 % (20.0-50.0); MEAN CORPUSCULAR HEMOGLOBIN 26.5 pg (28.0-32.0); MEAN CORPUSCULAR VOLUME 81.7 fL (81.0-99.0); MEAN PLATELET VOLUME 8.1 fl (7.4-10.4); MONOCYTES % 1.6 % (2.0-8.0); NEUTROPHILS % 89.9 % (40.0-76.0); PLATELET 242 x1000/uL (130-400); RED BLOOD CELL COUNT 4.86 mill/uL (4.2-5.4); RED CELL DISTRIBUTION WIDTH 17.1 % (11.6-14.6)
[2019-12-22 08:00] VITALS: BP 142/68
[2019-12-22] MEDS: GUAIFENESIN 600MG ER TABLET PO SCH ×2 (09:39→21:14)
[2019-12-22] MEDS: PANTOPRAZOLE SODIUM 40 MG/VIAL IV SCH ×2 (09:40→21:14)
[2019-12-22 12:00] VITALS: BP 136/71
[2019-12-22 12:13] LABS: CHLORIDE 100 mEq/L (98-107)
[2019-12-22] MEDS ORDERED: FUROSEMIDE 20MG TABLET PO SCH (12:30)
[2019-12-22] MEDS: DILTIAZEM HCL 120MG CAPSULE CD 24HR PO SCH (13:14)
[2019-12-22 16:00] VITALS: BP 133/77
[2019-12-22] MEDS: SODIUM CHLORIDE 0.9% 1,000 ML IV SCH (17:50)
[2019-12-22] MEDS: LEVOFLOXACIN 500MG PREMIX 100 ML IV SCH (17:52)
[2019-12-22] MEDS ORDERED: DIGOXIN 125MCG TABLET PO SCH (18:00)
[2019-12-22 20:00] VITALS: BP 106/53
[2019-12-23] VITALS: BP 107/55
[2019-12-23] MEDS: IPRATROPIUM/ALBUTEROL 0.5-3(2.5)MG/3ML NEB HHN SCH ×3 (01:58→15:31)
[2019-12-23 04:00] VITALS: BP 114/52
[2019-12-23] MEDS: METRONIDAZOLE 500MG TABLET PO SCH (05:31)
[2019-12-23 08:19] LABS: HEMATOCRIT 36.9 % (36.0-48.0); MEAN CORPUSCULAR HEMOGLOBIN 26.4 pg (28.0-32.0); MEAN CORPUSCULAR VOLUME 81.1 fL (81.0-99.0); PLATELET 259 x1000/uL (130-400); RED BLOOD CELL COUNT 4.55 mill/uL (4.2-5.4); RED CELL DISTRIBUTION WIDTH 16.7 % (11.6-14.6)
[2019-12-23] MEDS: SODIUM CHLORIDE 0.9% 1,000 ML IV SCH (08:30)
[2019-12-23] MEDS ORDERED: METHYLPREDNISOLONE SOD SUCC 40 MG/ML VIAL IV SCH (09:00)
[2019-12-23] MEDS: DILTIAZEM HCL 120MG CAPSULE CD 24HR PO SCH (09:03)
[2019-12-23] MEDS: PANTOPRAZOLE SODIUM 40 MG/VIAL IV SCH (09:03)
[2019-12-23] MEDS: GUAIFENESIN 600MG ER TABLET PO SCH (09:03)
[2019-12-23 09:07] LABS: CHLORIDE 103 mEq/L (98-107)
[2019-12-23] MEDS ORDERED: LEVO500T2 MT (10:25)
[2019-12-23] MEDS ORDERED: GUAI600T26 MT (10:25)
[2019-12-23] MEDS ORDERED: POTASSIUM CHLORIDE INJ 40 MEQ in DEXT 5% WATER 250 ML IV NR (10:30)
[2019-12-23 11:25] VITALS: BP 121/53
[2019-12-23] MEDS ORDERED: DIGO125T80 MT (15:20)
[2019-12-23] MEDS ORDERED: GUAI600T44 MT (15:30)
[2019-12-23] MEDS ORDERED: GUAI600T44 PO (15:30)
[2019-12-23] MEDS ORDERED: RIVAROXABAN 15 MG TABLET PO SCH (17:00)
[2019-12-23] MEDS ORDERED: GUAIFENESIN 200MG TABLET PO SCH (17:00)
== END 2019-12-23 16:15 | disposition home or self-care (01) | DRG 377 ==
LOC: ER 11:23 → 7WST 15:29 → ENRESERV 12-28 07:46
PROVIDERS: ADMIT Internal Medicine; ATTEND Internal Medicine
DX: K92.1 Melena (principal); I50.43 Acute on chronic combined systolic (congestive) and diastolic (congestive) heart failure; J18.9 Pneumonia, unspecified organism; I13.0 Hypertensive heart and chronic kidney disease with heart failure and stage 1 through stage 4 chronic kidney disease, or unspecified chronic kidney disease; J44.1 Chronic obstructive pulmonary disease with (acute) exacerbation; E87.1 Hypo-osmolality and hyponatremia; J44.0 Chronic obstructive pulmonary disease with (acute) lower respiratory infection; K56.41 Fecal impaction; D64.9 Anemia, unspecified; N18.9 Chronic kidney disease, unspecified; N30.90 Cystitis, unspecified without hematuria; T38.0X5A Adverse effect of glucocorticoids and synthetic analogues, initial encounter; E78.5 Hyperlipidemia, unspecified; E87.6 Hypokalemia; I34.0 Nonrheumatic mitral (valve) insufficiency; I07.1 Rheumatic tricuspid insufficiency; I27.29 Other secondary pulmonary hypertension; I27.81 Cor pulmonale (chronic); I48.91 Unspecified atrial fibrillation; Z79.01 Long term (current) use of anticoagulants; Z80.41 Family history of malignant neoplasm of ovary; Z82.49 Family history of ischemic heart disease and other diseases of the circulatory system; Y92.89 Other specified places as the place of occurrence of the external cause; Z79.899 Other long term (current) drug therapy
CPT/HCPCS: 36415; 36600; 71045; 74018; 74176; 80048; 80053; 80162; 81003; 82270; 82375; 82378; 82550; 82553; 82805; 83605; 84484; 85025; 85027; 86850; 86900; 87015; 87045; 87427; 87493; 89055; 93005; 94640; 97162; 99291; C9113; J1160; J1956; J2270; J2920; J3480; J3490; J7030; J7050; J7060